=== PATIENT | male | born 1960 | race Caucasian/White ===

== ENCOUNTER → 2016-05-28 | Day surgery (SDC) | payer BC ==
[~2016-05-28] MED LIST: Lactated Ringers 1,000 ML IV SCH; Lidocaine 4% Top Soln 5 ML LTA Syringe ONE; Lidocaine 4% Top Soln 5 ML LTA Syringe TOP ONE; Propofol 200 MG/20 ML SDV IV ONE
[2016-05-28 11:23] VITALS: BP 168/107
--- NOTE | 2016-05-28 14:40 | OR ---
DATE OF OPERATION: 05/28/2016 PREOPERATIVE DIAGNOSIS: 1. SCREENING COLONOSCOPY. 2. ABDOMINAL PAIN WITH REFLUX. POSTOPERATIVE DIAGNOSIS: 1. SCREENING COLONOSCOPY. 2. ABDOMINAL PAIN WITH REFLUX. SURGEON: Wilian Li MD PROCEDURE: 1. EGD WITH BIOPSIES X3, HERON, POLYP REMOVAL X2. 2. FULL-LENGTH COLONOSCOPY. ANESTHESIA: [employer] due to the chronic GERD. COMPLICATIONS: None. FINDINGS: 1. Full-length EGD. 2. Gastritis with duodenitis, [id number] and chronic in appearance. 3. Fundal polyps x2. 4. Small hiatal hernia. 5. Normal full-length colonoscopy. RECOMMENDATIONS: Routine colonoscopy every 10 years. Medical follow up with primary physician regarding the patient's peptic ulcer disease. INDICATIONS: The patient was in to see Dr. Tobias for routine physical and was due for routine screening colonoscopy, and he has been having some epigastric pain. Dr. Tobias recommended upper and lower scopes. DESCRIPTION OF PROCEDURE: The patient was prepped and draped, placed in the left lateral decubitus position. A lubricated Olympus gastroscope was inserted over a bit advanced cricopharyngeus area and easily intubated in the esophagus. Esophageal lining was benign in its entire course. The Z-line was crisp and sharp around 38.5 cm. A very small hiatal hernia was present without any spontaneous reflux. No distal esophagitis, stricturing, ulceration, or Ford's changes. Seen. The scope was advanced into the stomach through the pylorus into the third portion of the duodenum. The second and third portion of the duodenum were fine. The duodenal bulb had some [id number] duodenitis without ulceration. Biopsy x2 was taken. The scope was brought back into the stomach and retroflexed. The upper fundus and cardia were essentially benign, although the patient does have two smaller fundal polyps present; both were removed with cold forceps. The rest of the fundus appeared unremarkable. The patient does have at the distal part of the fundus and into the antrum some chronic gastritis with a few small erosions. Two biopsies were taken along with a HERON test. Air was then suctioned from the stomach. The scope was removed without complication. A lubricated Olympus colonoscope was then inserted and easily advanced to the cecum. Direct visualization of the ileocecal valve and appendiceal orifice was accomplished. The bowel prep was excellent. Upon withdrawal of the scope throughout the entire length of the colon, I found no signs of any polyps, mass, ulceration, or bleeding sites. No vascular abnormalities or signs of colitis. There was no diverticula or inflammatory changes visualized. The rectal vault was unremarkable. Retroflexion of the scope in the rectum showed no perianal disease or masses. Air was then suctioned. The scope removed without complications. IVETH/MADAI /[id number]
== END ==
LOC: CC.SDS 09:15
PROVIDERS: ATTEND Family Medicine
DX: Z12.11 Encounter for screening for malignant neoplasm of colon (principal); K29.80 Duodenitis without bleeding; K44.9 Diaphragmatic hernia without obstruction or gangrene; I78.1 Nevus, non-neoplastic; Z88.8 Allergy status to other drugs, medicaments and biological substances; Z91.030 Bee allergy status
CPT/HCPCS: 43239; 45378; 87081; A9270; J2704; J7120